=== PATIENT | male | born 1950 | race Caucasian/White ===

== ENCOUNTER 2019-05-01 12:39 | Emergency (ER) | payer MEDICARE, MEDICAID ==
[~2019-05-01] VITALS: Ht 170.2 cm; Wt 147.7 kg
[~2019-05-01 12:39] MED LIST: ADV50250 IH; ALBU8.5H8 IH; ASPI81TA52 PO; BUSP15TA7 PO; CELE200C3 PO; CLIN150C8 PO; DULO-31 PO; DUTA0.5C40 PO; FURO40TA4 PO; LISI-234 PO; MAGN500C16 PO; METF500T PO; MINE396O3 TOP; OXYC-658 PO; OXYC80TA37 PO; POTA8CAP20 PO; PREG100C PO; ROPI1TAB4 PO; TAMS0.4C32 PO
[2019-05-01 12:42] VITALS: BP 104/74
[2019-05-01] MEDS ORDERED: fentaNYL/PF 50MCG/1 ML 2ML syringe IM ONE (13:10)
[2019-05-01] MEDS ORDERED: methylPREDNISolone sod succ 125mg/2ml vial IM ONE (13:10)
== END 2019-05-01 13:51 | disposition home or self-care (01) ==
LOC: ER 12:40
DX: G89.29 Other chronic pain (principal); M54.5 Low back pain; I10 Essential (primary) hypertension; F41.9 Anxiety disorder, unspecified; F32.9 Major depressive disorder, single episode, unspecified; Z95.1 Presence of aortocoronary bypass graft; Z79.82 Long term (current) use of aspirin; Z79.84 Long term (current) use of oral hypoglycemic drugs; Z79.899 Other long term (current) drug therapy
CPT/HCPCS: 96372; 99283; J2930; J3010

== ENCOUNTER 2019-05-10 16:08 | Emergency (ER) | payer MEDICARE, MEDICAID ==
[~2019-05-10] VITALS: Ht 170.2 cm; Wt 147.7 kg
[2019-05-10] MEDS ORDERED: NORMAL SALINE IV ONE (16:40)
[2019-05-10] MEDS ORDERED: KETAMINE IV ONE (16:40)
[2019-05-10] MEDS ORDERED: HYDR-3964 PO (17:06)
[2019-05-10] MEDS ORDERED: BACL10TA2 PO (17:06)
[2019-05-10] MEDS ORDERED: DICL100G15 TOP (17:06)
[2019-05-10] MEDS ORDERED: KEN0.1O TOP (17:06)
[2019-05-10] MEDS ORDERED: LINA145C PO (17:49)
[2019-05-10] MEDS ORDERED: TRAM50TA2 PO (17:55)
[2019-05-10] MEDS ORDERED: CEPH-572 PO (17:55)
[2019-05-10 18:19] VITALS: BP 161/89
== END 2019-05-10 18:26 | disposition home or self-care (01) ==
LOC: ER 16:09
DX: G89.29 Other chronic pain (principal); M54.5 Low back pain; L03.116 Cellulitis of left lower limb; L03.115 Cellulitis of right lower limb; E66.01 Morbid (severe) obesity due to excess calories; I10 Essential (primary) hypertension; N40.0 Benign prostatic hyperplasia without lower urinary tract symptoms; F41.9 Anxiety disorder, unspecified; F32.9 Major depressive disorder, single episode, unspecified; Z98.890 Other specified postprocedural states; Z79.2 Long term (current) use of antibiotics; Z79.84 Long term (current) use of oral hypoglycemic drugs; Z79.899 Other long term (current) drug therapy; Z79.82 Long term (current) use of aspirin
CPT/HCPCS: 96365; 99284

== ENCOUNTER 2022-02-27 00:58 | Emergency (ER) | payer MEDICARE, MEDICAID ==
[~2022-02-27] VITALS: Ht 170.2 cm; Wt 136.4 kg
[~2022-02-27 00:58] MED LIST changes: -ADV50250 IH; -ALBU8.5H8 IH; -ASPI81TA52 PO; -BUSP15TA7 PO; -CELE200C3 PO; -CLIN150C8 PO; +DICL100G15 TOP; -DULO-31 PO; -DUTA0.5C40 PO; +HYDR-3964 PO; +KEN0.1O TOP; +LINA145C PO; -MAGN500C16 PO; +MAGN500C4 PO; -MINE396O3 TOP; -OXYC-658 PO; -OXYC80TA37 PO; -PREG100C PO; -ROPI1TAB4 PO; +ROPI1TAB6 PO; -TAMS0.4C32 PO
[2022-02-27 02:38] LABS: BASOPHILS # (AUTO) 0.1 X10'3 (0-0.2); BASOPHILS % (AUTO) 0.7 % (0-1); EOSINOPHILS # (AUTO) 0.1 X10'3 (0-0.9); EOSINOPHILS % (AUTO) 0.8 % (0-6); HEMATOCRIT 38.5 % (42.0-52.0); HEMOGLOBIN 13.1 g/dl (14.0-17.9); LYMPHOCYTES # (AUTO) 3.9 X10'3 (1.1-4.8); LYMPHOCYTES % (AUTO) 33.8 % (21-51); MEAN CORPUSCULAR HEMOGLOBIN 30.6 PG (27.0-31.0); MEAN PLATELET VOLUME 6.8 FL (7.4-10.4); MONOCYTES # (AUTO) 0.7 X10'3 (0-0.9); MONOCYTES % (AUTO) 6.1 % (2-12); NEUTROPHILS # (AUTO) 6.8 X10'3 (1.8-7.7); NEUTROPHILS % (AUTO) 58.6 % (42-75); PLATELET COUNT 299 X10'3 (140-440); RED BLOOD COUNT 4.28 X10'6 (4.70-6.10); RED CELL DISTRIBUTION WIDTH 12.8 % (11.5-14.5); WHITE BLOOD COUNT 11.6 X10'3 (4.5-11.0)
[2022-02-27 02:52] LABS: ALANINE AMINOTRANSFERASE 25 U/L (12-78); ALBUMIN 3.5 G/DL (3.4-5.0); ALBUMIN/GLOBULIN RATIO 0.9 (1.1-1.5); ALKALINE PHOSPHATASE 66 IU/L (46-116); ANION GAP 11 (8-16); ASPARTATE AMINO TRANSFERASE 26 U/L (10-37); BILIRUBIN,TOTAL 0.4 MG/DL (0.1-1.0); BLOOD UREA NITROGEN 19 MG/DL (7-18); BUN/CREATININE RATIO 18.3 (5.4-32.0); CALCIUM 9.3 MG/DL (8.5-10.1); CHLORIDE 100 MMOL/L (99-107); CREATININE 1.04 MG/DL (0.60-1.10); SODIUM 136 MMOL/L (135-145); TOTAL CARBON DIOXIDE 25.4 MMOL/L (24-32); TOTAL PROTEIN 7.5 G/DL (6.4-8.2); eGFR 70 ML/MIN
[2022-02-27 02:58] LABS: GLUCOSE 76 MG/DL (70-104)
[2022-02-27 03:22] LABS: APTT 36 SECONDS (22-32); D-DIMER 1.05 MG/L FEU (0-0.50)
[2022-02-27] MEDS ORDERED: ondansetron/PF 4mg/2ml inj IV ONE (03:30)
[2022-02-27] MEDS ORDERED: morphine 4 MG/ML inj SYRINge IV ONE (03:30)
--- NOTE | 2022-02-27 04:10 | NUR ---
vascular paged at [phone]
[2022-02-27 04:39] LABS: ETHANOL 0.212 GM/DL (0.0-0.010)
--- NOTE | 2022-02-27 06:30 | NUR ---
FIRST CONTACT WITH PT, FOUND SIDE-LYING IN BED. PT RR EVEN AND UNLABORED, IN NO DISTRESS. AWAITING MRI THIS MORNING.
--- NOTE | 2022-02-27 08:30 | NUR ---
PER DR. MANTILLA, IF PT IS ABLE TO WALK WITH STEADY GAIT, HE WILL NOT GET AN MRI TODAY.
--- NOTE | 2022-02-27 08:45 | NUR ---
PT AMBULATED WITH STEADY GAIT AND CANE APPROX 75 FEET. MD INFORMED, WILL BE DISCHARGED HOME.
[2022-02-27 10:15] VITALS: BP 152/76
== END 2022-02-27 10:15 | disposition home or self-care (01) ==
LOC: ER 00:59
DX: M25.552 Pain in left hip (principal); M25.551 Pain in right hip; M54.50 Low back pain, unspecified; I10 Essential (primary) hypertension; G89.29 Other chronic pain; F41.9 Anxiety disorder, unspecified; F32.A Depression, unspecified; Z98.890 Other specified postprocedural states; Z72.89 Other problems related to lifestyle; Z79.899 Other long term (current) drug therapy
CPT/HCPCS: 36415; 71045; 72128; 72131; 80053; 80320; 83880; 84484; 85025; 85379; 85610; 85730; 93005; 93971; 96374; 96375; 99285; J2270; J2405

== ENCOUNTER 2022-08-08 11:33 | Emergency (ER) | payer MEDICARE, MEDICAID ==
[~2022-08-08] VITALS: Ht 172.7 cm; Wt 120.5 kg
[2022-08-08] MEDS ORDERED: LIDOcaine 5% patch TP STA (12:41)
[2022-08-08] MEDS ORDERED: oxyCODONE/APAP 10/325mg tablet PO ONE (12:45)
[2022-08-08] MEDS ORDERED: morphine 4 MG/ML inj SYRINge IM ONE (12:50)
[2022-08-08] MEDS ORDERED: NAPR-56 PO (14:02)
[2022-08-08] MEDS ORDERED: LIDO700A32 TOP (14:02)
[2022-08-08] MEDS ORDERED: ketorolac trometh inj. 60 MG/2 ML VIAL IM ONE (14:05)
[2022-08-08] MEDS ORDERED: OXYC-145 PO (14:16)
[2022-08-08 14:37] VITALS: BP 170/103
== END 2022-08-08 14:41 | disposition home or self-care (01) ==
LOC: ER 11:34
DX: S20.211A Contusion of right front wall of thorax, initial encounter (principal); X58.XXXA Exposure to other specified factors, initial encounter; Y93.89 Activity, other specified; Y92.89 Other specified places as the place of occurrence of the external cause; Y99.8 Other external cause status
CPT/HCPCS: 71045; 96372; 99284; J1885; J2270

== ENCOUNTER 2023-06-12 16:27 | Emergency (ER) | payer MEDICARE, MEDICAID ==
[~2023-06-12] VITALS: Ht 170.2 cm; Wt 135.0 kg
[~2023-06-12 16:27] MED LIST changes: +LIDO700A32 TOP; +OXYC-145 PO; +ROPI1TAB47 PO; -ROPI1TAB6 PO
[2023-06-12 16:35] VITALS: BP 134/84; PULSE 102; RESP 16; TEMP 98.1; O2SAT 94
[2023-06-12 18:31] LABS: BASOPHILS % (AUTO) 0.3 % (0-1); EOSINOPHILS # (AUTO) 0.2 X10'3 (0-0.9); EOSINOPHILS % (AUTO) 1.2 % (0-6); HEMATOCRIT 40.3 % (42.0-52.0); HEMOGLOBIN 13.3 g/dl (14.0-17.9); LYMPHOCYTES % (AUTO) 14.4 % (21-51); MEAN CORPUSCULAR HEMOGLOBIN 29.4 PG (27.0-31.0); MEAN CORPUSCULAR VOLUME 89.3 FL (78-98); MEAN PLATELET VOLUME 6.4 FL (7.4-10.4); MONOCYTES # (AUTO) 0.8 X10'3 (0-0.9); NEUTROPHILS # (AUTO) 10.8 X10'3 (1.8-7.7); NEUTROPHILS % (AUTO) 78.1 % (42-75); PLATELET COUNT 516 X10'3 (140-440); RED BLOOD COUNT 4.51 X10'6 (4.70-6.10); WHITE BLOOD COUNT 13.9 X10'3 (4.5-11.0)
[2023-06-12 18:43] LABS: ALANINE AMINOTRANSFERASE 32 U/L (12-78); ALBUMIN 3.2 G/DL (3.4-5.0); ALBUMIN/GLOBULIN RATIO 0.6 (1.1-1.5); ALKALINE PHOSPHATASE 71 IU/L (46-116); ANION GAP 8 (8-16); ASPARTATE AMINO TRANSFERASE 27 U/L (10-37); BILIRUBIN,TOTAL 0.3 MG/DL (0.1-1.0); BLOOD UREA NITROGEN 54 MG/DL (7-18); BUN/CREATININE RATIO 24.2 (10.0-20.0); CHLORIDE 93 MMOL/L (99-107); CREATININE 2.23 MG/DL (0.60-1.10); GLUCOSE 124 MG/DL (70-104); POTASSIUM 4.5 MMOL/L (3.5-5.1); SODIUM 133 MMOL/L (135-145); TOTAL CARBON DIOXIDE 31.6 MMOL/L (24-32); TOTAL PROTEIN 8.6 G/DL (6.4-8.2); eCRCL 27 ML/MIN; eGFR 29 ML/MIN
[2023-06-13] MEDS ORDERED: FURO40TA4 PO (16:29)
[2023-06-13] MEDS ORDERED: HYDR-3972 PO (16:29)
[2023-06-13] MEDS ORDERED: POLY510P31 PO (16:29)
[2023-06-13] MEDS ORDERED: SULF1TAB45 PO (16:29)
[2023-06-13] MEDS ORDERED: DICL100G59 TOP (16:29)
[2023-06-13] MEDS ORDERED: POTA8CAP20 PO (16:29)
[2023-06-13] MEDS ORDERED: TRIA15OI2 TOP (16:29)
[2023-06-13] MEDS ORDERED: IBUP-1986 PO (16:29)
[2023-06-13] MEDS ORDERED: HYDR-3686 PO (16:29)
[2023-06-13] MEDS ORDERED: LISI1TAB53 PO (16:29)
== END 2023-06-12 23:00 | disposition left against medical advice (07) ==
LOC: ER 16:28
DX: M79.89 Other specified soft tissue disorders (principal); Z53.21 Procedure and treatment not carried out due to patient leaving prior to being seen by health care provider
CPT/HCPCS: 36415; 80053; 84145; 85025; 99281

== ENCOUNTER 2023-12-21 12:38 | Inpatient (IN) | payer MEDICARE, MEDICAID ==
[~2023-12-21] VITALS: Ht 170.2 cm; Wt 138.6 kg
[~2023-12-21 12:38] MED LIST changes: +ALBU18HF2 INH; +AMLO-708 PO; +CHLO25TA10 PO; -DICL100G15 TOP; +DICL100G59 TOP; +FURO-149 PO; -FURO40TA4 PO; +GENT30OI2 TOP; -HYDR-3964 PO; +HYDR-3972 PO; +IBUP-1986 PO; -KEN0.1O TOP; -LIDO700A32 TOP; -LINA145C PO; -LISI-234 PO; +LISI40TA13 PO; -MAGN500C4 PO; -METF500T PO; +METH10SO PO; -OXYC-145 PO; +SIMV5TAB58 PO; +TRAZ-251 PO
[2023-12-21 15:26] LABS: BASOPHILS # (AUTO) 0.1 X10'3 (0-0.2); BASOPHILS % (AUTO) 1.1 % (0-1); EOSINOPHILS # (AUTO) 0.1 X10'3 (0-0.9); EOSINOPHILS % (AUTO) 0.9 % (0-6); HEMATOCRIT 33.1 % (42.0-52.0); HEMOGLOBIN 10.8 g/dl (14.0-17.9); LYMPHOCYTES % (AUTO) 19.3 % (21-51); MEAN CORPUSCULAR HEMOGLOBIN 29.2 PG (27.0-31.0); MEAN CORPUSCULAR HGB CONC 32.7 g/dL (33.0-36.5); MEAN CORPUSCULAR VOLUME 89.4 FL (78-98); MEAN PLATELET VOLUME 6.9 FL (7.4-10.4); MONOCYTES # (AUTO) 0.7 X10'3 (0-0.9); MONOCYTES % (AUTO) 7.1 % (2-12); NEUTROPHILS # (AUTO) 7.4 X10'3 (1.8-7.7); NEUTROPHILS % (AUTO) 71.6 % (42-75); PLATELET COUNT 551 X10'3 (140-440); RED CELL DISTRIBUTION WIDTH 14.1 % (11.5-14.5); WHITE BLOOD COUNT 10.4 X10'3 (4.5-11.0)
[2023-12-21 15:26] LABS: BILIRUBIN,URINE NEGATIVE (Neg); CLARITY,URINE CLEAR (Clear); COLOR,URINE YELLOW (Yellow); GLUCOSE, URINE NEGATIVE (Neg); KETONES,URINE NEGATIVE (Neg); LEUKOCYTE ESTERASE ,URINE NEGATIVE (Neg); NITRITES, URINE NEGATIVE (Neg); OCCULT BLOOD,URINE NEGATIVE (Neg); PH,URINE 5.5 (4.8-8.0); PROTEIN,URINE NEGATIVE (Neg); UROBILINOGEN,URINE 0.2 E.U/dL (0.2-1.0)
[2023-12-21 15:27] LABS: UA COLLECTION TYPE CLN CATCH MIDSTREAM
[2023-12-21 15:31] LABS: ANION GAP 2 (8-16); BLOOD UREA NITROGEN 97 MG/DL (7-18); BUN/CREATININE RATIO 34.5 (10.0-20.0); CALCIUM 8.9 MG/DL (8.5-10.1); CHLORIDE 104 MMOL/L (99-107); CREATININE 2.81 MG/DL (0.60-1.10); POTASSIUM 5.6 MMOL/L (3.5-5.1); SODIUM 136 MMOL/L (135-145); TOTAL CARBON DIOXIDE 29.6 MMOL/L (24-32); eCRCL 21 ML/MIN; eGFR 22 ML/MIN
[2023-12-21 15:33] LABS: ETHANOL < 10 MG/DL (<10); GLUCOSE 115 MG/DL (70-104)
[2023-12-21 15:34] LABS: URINE AMPHETAMINE SCREEN NEGATIVE (Neg); URINE BARBITUATE SCREEN NEGATIVE (Neg); URINE BENZODIAZEPINES SCREEN NEGATIVE (Neg); URINE CANNABINOID SCREEN NEGATIVE (Neg); URINE COCAINE SCREEN NEGATIVE (Neg); URINE METHADONE SCREEN POSITIVE (Neg); URINE OPIATE SCREEN POSITIVE (Neg); URINE PHENCYCLIDINE SCREEN NEGATIVE (Neg)
[2023-12-21] MEDS: CefTRIAXone 2gm/D5W 50ml BAG 50 ML IV ONE (16:42)
[2023-12-21] MEDS: methadone 10mg tablet PO ONE (16:42)
[2023-12-21] MEDS ORDERED: acetaminophen 325mg tablet PO PRN (16:50)
[2023-12-21] MEDS ORDERED: mag hydrox/Alum hydrox/simeth 30ml oral suspension PO PRN (16:50)
[2023-12-21] MEDS ORDERED: potassium Cl 40MEQ/1/2NS 520ml 520 ML IV PRN (16:50)
[2023-12-21] MEDS ORDERED: magnesium 4gm in 100ml NS 100 ML IV PRN (16:50)
[2023-12-21] MEDS ORDERED: magnesium 2GM in 50ml NS 50 ML IV PRN (16:50)
[2023-12-21] MEDS ORDERED: potassium Cl 20 mEq SR tablet PO PRN ×2 (16:50)
[2023-12-21] MEDS ORDERED: ondansetron/PF 4mg/2ml inj IV PRN (16:50)
[2023-12-21] MEDS ORDERED: magnesium Cl slow-release 64mg tablet PO PRN (16:50)
[2023-12-21] MEDS ORDERED: ipratropium/albuterol 3ml nebule NEB PRN (17:25)
[2023-12-21] MEDS: K and/or MAG REPLACEMENT MC SCH (20:00)
[2023-12-21] MEDS: docusate sod 100mg capsule PO SCH (20:00)
[2023-12-21] MEDS ORDERED: ENOX40SY7 SUBCUT (20:15)
[2023-12-21] MEDS ORDERED: GABA-530 PO (20:21)
[2023-12-21] MEDS ORDERED: HYDR-3972 PO (20:22)
[2023-12-21] MEDS: normal saline 1000ml 1,000 ML IV SCH (20:35)
[2023-12-21] MEDS: vancomycin/NS 1 GM ADD-VANTAGE 250 ML IV SCH (20:35)
[2023-12-21] MEDS: heparin, porcine 5000 units/ml vial SQ SCH (20:36)
[2023-12-21 21:38] VITALS: BP 124/51; PULSE 81; RESP 16; TEMP 97.8; O2SAT 92
[2023-12-21] MEDS: HYDROmorphone inj. 0.5 MG/0.5 ML DISP.SYRIN IV PRN (21:42)
[2023-12-21 22:00] VITALS: RESP 18; O2SAT 94
[2023-12-21 22:10] VITALS: PULSE 86; RESP 17; O2SAT 99
[2023-12-21] MEDS: HYDROcodone/acetaminophen 5mg/325mg tablet PO PRN (22:53)
[2023-12-22] VITALS (9 sets, daily range): BP systolic 107–163; BP diastolic 32–74; PULSE 53–98; RESP 14–22; TEMP 97.5–98.6; O2SAT 89–98
[2023-12-22] MEDS: magnesium hydroxide 30ml (MOM) UD suspension PO PRN (03:42)
[2023-12-22 11:45] LABS: BASOPHILS # (AUTO) 0.1 X10'3 (0-0.2); BASOPHILS % (AUTO) 0.9 % (0-1); EOSINOPHILS # (AUTO) 0.2 X10'3 (0-0.9); EOSINOPHILS % (AUTO) 1.9 % (0-6); HEMATOCRIT 32.6 % (42.0-52.0); HEMOGLOBIN 10.6 g/dl (14.0-17.9); LYMPHOCYTES % (AUTO) 22.5 % (21-51); MEAN CORPUSCULAR HEMOGLOBIN 28.7 PG (27.0-31.0); MEAN CORPUSCULAR HGB CONC 32.5 g/dL (33.0-36.5); MEAN CORPUSCULAR VOLUME 88.5 FL (78-98); MEAN PLATELET VOLUME 7.1 FL (7.4-10.4); MONOCYTES # (AUTO) 0.7 X10'3 (0-0.9); MONOCYTES % (AUTO) 8.4 % (2-12); NEUTROPHILS # (AUTO) 5.9 X10'3 (1.8-7.7); NEUTROPHILS % (AUTO) 66.3 % (42-75); PLATELET COUNT 525 X10'3 (140-440); RED BLOOD COUNT 3.68 X10'6 (4.70-6.10); RED CELL DISTRIBUTION WIDTH 14.2 % (11.5-14.5); WHITE BLOOD COUNT 8.9 X10'3 (4.5-11.0)
[2023-12-22 12:14] LABS: ALANINE AMINOTRANSFERASE 29 U/L (12-78); ALBUMIN 1.9 G/DL (3.4-5.0); ALBUMIN/GLOBULIN RATIO 0.4 (1.1-1.5); ALKALINE PHOSPHATASE 45 IU/L (46-116); ANION GAP 5 (8-16); ASPARTATE AMINO TRANSFERASE 28 U/L (10-37); BILIRUBIN,TOTAL 0.3 MG/DL (0.1-1.0); BLOOD UREA NITROGEN 70 MG/DL (7-18); BUN/CREATININE RATIO 41.4 (10.0-20.0); CALCIUM 8.7 MG/DL (8.5-10.1); CHLORIDE 104 MMOL/L (99-107); CREATININE 1.69 MG/DL (0.60-1.10); MAGNESIUM 2.3 MG/DL (1.5-2.4); POTASSIUM 4.9 MMOL/L (3.5-5.1); SODIUM 138 MMOL/L (135-145); TOTAL CARBON DIOXIDE 29.5 MMOL/L (24-32); TOTAL PROTEIN 6.8 G/DL (6.4-8.2); eCRCL 35 ML/MIN; eGFR 40 ML/MIN
[2023-12-22 12:15] LABS: GLUCOSE 107 MG/DL (70-104)
[2023-12-22] MEDS: furosemide 40mg/4ml inj IV ONE (13:28)
[2023-12-22] MEDS: HYDROcodone/acetaminophen 10/325mg tab PO PRN (15:55)
[2023-12-22] MEDS ORDERED: albuterol 2.5 MG/3 ML nebule NEB PRN (17:45)
[2023-12-22] MEDS: nystatin 15 GM powder TP SCH (19:31)
[2023-12-22] MEDS: ROPINIRole 1mg tablet PO SCH (20:17)
[2023-12-22] MEDS: SIMVASTATIN 5 MG PO SCH (20:18)
[2023-12-23] VITALS (8 sets, daily range): BP systolic 131–160; BP diastolic 59–77; PULSE 68–91; RESP 16–22; TEMP 97.7–99; O2SAT 90–95
[2023-12-23] MEDS: furosemide 40mg/4ml inj IV SCH (07:28)
[2023-12-23] MEDS: chlorthalidone 25mg tablet PO SCH (07:29)
[2023-12-23] MEDS: amLODIPine 5mg tablet PO SCH (07:30)
[2023-12-23 07:48] LABS: BASOPHILS # (AUTO) 0.1 X10'3 (0-0.2); BASOPHILS % (AUTO) 0.9 % (0-1); EOSINOPHILS # (AUTO) 0.1 X10'3 (0-0.9); HEMATOCRIT 31.8 % (42.0-52.0); HEMOGLOBIN 10.6 g/dl (14.0-17.9); LYMPHOCYTES # (AUTO) 2.2 X10'3 (1.1-4.8); LYMPHOCYTES % (AUTO) 28.3 % (21-51); MEAN CORPUSCULAR HEMOGLOBIN 29.2 PG (27.0-31.0); MEAN CORPUSCULAR HGB CONC 33.2 g/dL (33.0-36.5); MEAN CORPUSCULAR VOLUME 87.8 FL (78-98); MEAN PLATELET VOLUME 6.7 FL (7.4-10.4); MONOCYTES # (AUTO) 0.5 X10'3 (0-0.9); MONOCYTES % (AUTO) 6.9 % (2-12); NEUTROPHILS % (AUTO) 62.9 % (42-75); PLATELET COUNT 511 X10'3 (140-440); RED BLOOD COUNT 3.62 X10'6 (4.70-6.10); WHITE BLOOD COUNT 7.9 X10'3 (4.5-11.0)
[2023-12-23 08:14] LABS: ALANINE AMINOTRANSFERASE 29 U/L (12-78); ALBUMIN/GLOBULIN RATIO 0.4 (1.1-1.5); ALKALINE PHOSPHATASE 51 IU/L (46-116); ANION GAP 5 (8-16); ASPARTATE AMINO TRANSFERASE 25 U/L (10-37); BILIRUBIN,TOTAL 0.4 MG/DL (0.1-1.0); BLOOD UREA NITROGEN 44 MG/DL (7-18); BUN/CREATININE RATIO 37.3 (10.0-20.0); CALCIUM 8.6 MG/DL (8.5-10.1); CHLORIDE 101 MMOL/L (99-107); CREATININE 1.18 MG/DL (0.60-1.10); POTASSIUM 4.2 MMOL/L (3.5-5.1); SODIUM 136 MMOL/L (135-145); TOTAL CARBON DIOXIDE 29.6 MMOL/L (24-32); eCRCL 51 ML/MIN; eGFR 60 ML/MIN
[2023-12-23 08:31] LABS: GLUCOSE 104 MG/DL (70-104)
[2023-12-23] MEDS: HYDROcodone/acetaminophen 10/325mg tab PO SCH (10:21)
[2023-12-23] MEDS: docusate sod 250mg capsule PO SCH (20:09)
[2023-12-23] MEDS: psyllium seed 5.8 gm packet (sugar-free) PO SCH (20:10)
[2023-12-24] VITALS (8 sets, daily range): BP systolic 137–158; BP diastolic 80–87; PULSE 75–91; RESP 16–20; TEMP 98.1–98.4; O2SAT 93–98
[2023-12-24 06:49] LABS: BASOPHILS # (AUTO) 0.1 X10'3 (0-0.2); BASOPHILS % (AUTO) 0.8 % (0-1); EOSINOPHILS # (AUTO) 0.1 X10'3 (0-0.9); HEMATOCRIT 34.2 % (42.0-52.0); HEMOGLOBIN 11.6 g/dl (14.0-17.9); LYMPHOCYTES # (AUTO) 2.1 X10'3 (1.1-4.8); LYMPHOCYTES % (AUTO) 22.7 % (21-51); MEAN CORPUSCULAR HEMOGLOBIN 29.5 PG (27.0-31.0); MEAN CORPUSCULAR HGB CONC 33.9 g/dL (33.0-36.5); MEAN CORPUSCULAR VOLUME 86.9 FL (78-98); MEAN PLATELET VOLUME 6.7 FL (7.4-10.4); MONOCYTES # (AUTO) 0.6 X10'3 (0-0.9); MONOCYTES % (AUTO) 6.7 % (2-12); NEUTROPHILS # (AUTO) 6.4 X10'3 (1.8-7.7); NEUTROPHILS % (AUTO) 68.8 % (42-75); PLATELET COUNT 520 X10'3 (140-440); RED BLOOD COUNT 3.94 X10'6 (4.70-6.10); RED CELL DISTRIBUTION WIDTH 13.6 % (11.5-14.5); WHITE BLOOD COUNT 9.2 X10'3 (4.5-11.0)
[2023-12-24 07:03] LABS: ALANINE AMINOTRANSFERASE 34 U/L (12-78); ALBUMIN 2.1 G/DL (3.4-5.0); ALBUMIN/GLOBULIN RATIO 0.4 (1.1-1.5); ALKALINE PHOSPHATASE 57 IU/L (46-116); ANION GAP 5 (8-16); ASPARTATE AMINO TRANSFERASE 27 U/L (10-37); BILIRUBIN,TOTAL 0.5 MG/DL (0.1-1.0); BLOOD UREA NITROGEN 32 MG/DL (7-18); BUN/CREATININE RATIO 29.6 (10.0-20.0); CALCIUM 9.1 MG/DL (8.5-10.1); CHLORIDE 98 MMOL/L (99-107); CREATININE 1.08 MG/DL (0.60-1.10); POTASSIUM 3.8 MMOL/L (3.5-5.1); SODIUM 134 MMOL/L (135-145); TOTAL CARBON DIOXIDE 30.8 MMOL/L (24-32); TOTAL PROTEIN 7.6 G/DL (6.4-8.2); eCRCL 55 ML/MIN; eGFR 67 ML/MIN
[2023-12-24 07:10] LABS: GLUCOSE 109 MG/DL (70-104)
[2023-12-24] MEDS: VANCOMYCIN LEVEL IV ONE (17:07)
[2023-12-24] MEDS: traZODone 50mg tablet PO SCH (21:11)
[2023-12-25] VITALS (7 sets, daily range): BP systolic 118–140; BP diastolic 68–82; PULSE 78–110; RESP 16–22; TEMP 98.1–99; O2SAT 93–97
[2023-12-25 07:13] LABS: BASOPHILS # (AUTO) 0.1 X10'3 (0-0.2); BASOPHILS % (AUTO) 0.7 % (0-1); EOSINOPHILS # (AUTO) 0.1 X10'3 (0-0.9); EOSINOPHILS % (AUTO) 1.4 % (0-6); HEMATOCRIT 36.8 % (42.0-52.0); HEMOGLOBIN 12.1 g/dl (14.0-17.9); LYMPHOCYTES # (AUTO) 2.3 X10'3 (1.1-4.8); LYMPHOCYTES % (AUTO) 23.4 % (21-51); MEAN CORPUSCULAR HEMOGLOBIN 28.8 PG (27.0-31.0); MEAN CORPUSCULAR VOLUME 87.5 FL (78-98); MONOCYTES # (AUTO) 0.8 X10'3 (0-0.9); NEUTROPHILS # (AUTO) 6.6 X10'3 (1.8-7.7); NEUTROPHILS % (AUTO) 66.5 % (42-75); PLATELET COUNT 526 X10'3 (140-440); RED BLOOD COUNT 4.21 X10'6 (4.70-6.10); RED CELL DISTRIBUTION WIDTH 13.8 % (11.5-14.5); WHITE BLOOD COUNT 9.9 X10'3 (4.5-11.0)
[2023-12-25 07:35] LABS: ALANINE AMINOTRANSFERASE 37 U/L (12-78); ALBUMIN 2.2 G/DL (3.4-5.0); ALBUMIN/GLOBULIN RATIO 0.4 (1.1-1.5); ALKALINE PHOSPHATASE 58 IU/L (46-116); ANION GAP 5 (8-16); ASPARTATE AMINO TRANSFERASE 25 U/L (10-37); BILIRUBIN,TOTAL 0.4 MG/DL (0.1-1.0); BLOOD UREA NITROGEN 31 MG/DL (7-18); BUN/CREATININE RATIO 29.8 (10.0-20.0); CALCIUM 9.3 MG/DL (8.5-10.1); CHLORIDE 98 MMOL/L (99-107); CREATININE 1.04 MG/DL (0.60-1.10); POTASSIUM 3.6 MMOL/L (3.5-5.1); SODIUM 133 MMOL/L (135-145); TOTAL CARBON DIOXIDE 29.8 MMOL/L (24-32); TOTAL PROTEIN 7.5 G/DL (6.4-8.2); eCRCL 57 ML/MIN; eGFR 70 ML/MIN
[2023-12-25 08:01] LABS: GLUCOSE 100 MG/DL (70-104)
[2023-12-26] VITALS (7 sets, daily range): BP systolic 92–154; BP diastolic 56–78; PULSE 82–97; RESP 16–20; TEMP 97.4–98.7; O2SAT 92–96
[2023-12-26 07:39] LABS: BASOPHILS # (AUTO) 0.2 X10'3 (0-0.2); BASOPHILS % (AUTO) 1.7 % (0-1); EOSINOPHILS # (AUTO) 0.1 X10'3 (0-0.9); EOSINOPHILS % (AUTO) 1.1 % (0-6); HEMATOCRIT 35.9 % (42.0-52.0); HEMOGLOBIN 12.4 g/dl (14.0-17.9); LYMPHOCYTES # (AUTO) 2.5 X10'3 (1.1-4.8); LYMPHOCYTES % (AUTO) 23.9 % (21-51); MEAN CORPUSCULAR HGB CONC 34.6 g/dL (33.0-36.5); MEAN CORPUSCULAR VOLUME 86.7 FL (78-98); MEAN PLATELET VOLUME 7.1 FL (7.4-10.4); MONOCYTES # (AUTO) 0.9 X10'3 (0-0.9); MONOCYTES % (AUTO) 8.5 % (2-12); NEUTROPHILS # (AUTO) 6.7 X10'3 (1.8-7.7); NEUTROPHILS % (AUTO) 64.8 % (42-75); PLATELET COUNT 468 X10'3 (140-440); RED BLOOD COUNT 4.14 X10'6 (4.70-6.10); RED CELL DISTRIBUTION WIDTH 13.7 % (11.5-14.5); WHITE BLOOD COUNT 10.3 X10'3 (4.5-11.0)
[2023-12-26 07:56] LABS: ALANINE AMINOTRANSFERASE 38 U/L (12-78); ALBUMIN 2.3 G/DL (3.4-5.0); ALBUMIN/GLOBULIN RATIO 0.4 (1.1-1.5); ALKALINE PHOSPHATASE 61 IU/L (46-116); ANION GAP 7 (8-16); ASPARTATE AMINO TRANSFERASE 24 U/L (10-37); BILIRUBIN,TOTAL 0.4 MG/DL (0.1-1.0); BLOOD UREA NITROGEN 40 MG/DL (7-18); BUN/CREATININE RATIO 30.5 (10.0-20.0); CALCIUM 9.3 MG/DL (8.5-10.1); CHLORIDE 98 MMOL/L (99-107); CREATININE 1.31 MG/DL (0.60-1.10); POTASSIUM 3.5 MMOL/L (3.5-5.1); SODIUM 132 MMOL/L (135-145); TOTAL CARBON DIOXIDE 26.7 MMOL/L (24-32); TOTAL PROTEIN 7.7 G/DL (6.4-8.2); eCRCL 46 ML/MIN; eGFR 53 ML/MIN
[2023-12-26 08:02] LABS: GLUCOSE 98 MG/DL (70-104)
[2023-12-26] MEDS: lisinopril 20mg tablet PO SCH (08:11)
[2023-12-26] MEDS: VANCOMYCIN LEVEL IV ONE (16:42)
[2023-12-27] MEDS: HYDROmorphone inj. 0.5 MG/0.5 ML DISP.SYRIN IM ONE (02:16)
[2023-12-27 06:42] VITALS: BP 130/73; PULSE 88; RESP 16; TEMP 98; O2SAT 96
[2023-12-27 08:00] VITALS: RESP 16; O2SAT 96
[2023-12-27 10:00] VITALS: BP 91/55; PULSE 86; RESP 20; TEMP 98.8; O2SAT 92
== END 2023-12-27 10:39 | DRG 682 ==
LOC: ER 12:39 → ED HOLD 16:52 → EDBEDREQ 19:21 → ORTHO 4S 21:20
PROVIDERS: ADMIT Internal Medicine; ATTEND Internal Medicine
PROC: 02HV33Z Insertion of Infusion Device into Superior Vena Cava, Percutaneous Approach (ICD-10-PCS; principal; 2023-12-21)
PROC: B548ZZZ Ultrasonography of Superior Vena Cava (ICD-10-PCS; 2023-12-21)
DX: N17.0 Acute kidney failure with tubular necrosis (principal); E43 Unspecified severe protein-calorie malnutrition; F11.23 Opioid dependence with withdrawal; L03.115 Cellulitis of right lower limb; L03.116 Cellulitis of left lower limb; Z68.42 Body mass index [BMI] 45.0-49.9, adult; J96.10 Chronic respiratory failure, unspecified whether with hypoxia or hypercapnia; E87.5 Hyperkalemia; I10 Essential (primary) hypertension; E78.5 Hyperlipidemia, unspecified; N40.0 Benign prostatic hyperplasia without lower urinary tract symptoms; M54.9 Dorsalgia, unspecified; K57.90 Diverticulosis of intestine, part unspecified, without perforation or abscess without bleeding; G89.29 Other chronic pain; G47.30 Sleep apnea, unspecified; F41.9 Anxiety disorder, unspecified; F32.A Depression, unspecified; E66.01 Morbid (severe) obesity due to excess calories; Z87.891 Personal history of nicotine dependence; Z82.49 Family history of ischemic heart disease and other diseases of the circulatory system; Z79.899 Other long term (current) drug therapy; Z80.8 Family history of malignant neoplasm of other organs or systems
CPT/HCPCS: 36415; 73060; 80048; 80053; 80202; 80305; 80320; 81003; 83605; 83735; 84145; 85025; 87040; 87081; 93005; 94760; 97110; 97161; 97530; 97535; 99285; A4615; A6212; A6213; A6250; A6449; A6590; G0378; J0696; J1170; J1644; J1940; J3370; J7030

== ENCOUNTER 2024-06-24 12:38 | Emergency (ER) | payer MEDICARE, MEDICAID ==
[~2024-06-24] VITALS: Ht 170.2 cm; Wt 136.4 kg
[~2024-06-24 12:38] MED LIST changes: +ENOX40SY7 SUBCUT; +GABA-530 PO
[2024-06-24 13:34] LABS: ALBUMIN 3.6 G/DL (3.4-5.0); BILIRUBIN,TOTAL 0.8 MG/DL (0.1-1.0); BLOOD UREA NITROGEN 21 MG/DL (7-18); CALCIUM 9.1 MG/DL (8.5-10.1); POTASSIUM 4.2 MMOL/L (3.5-5.1); SODIUM 137 MMOL/L (135-145)
[2024-06-24 13:37] LABS: BASOPHILS # (AUTO) 0.1 X10'3 (0-0.2); BASOPHILS % (AUTO) 0.7 % (0-1); EOSINOPHILS % (AUTO) 0.1 % (0-6); HEMOGLOBIN 13.1 g/dl (14.0-17.9); LYMPHOCYTES # (AUTO) 2.2 X10'3 (1.1-4.8); LYMPHOCYTES % (AUTO) 24.9 % (21-51); MEAN CORPUSCULAR HEMOGLOBIN 28.4 PG (27.0-31.0); MEAN CORPUSCULAR HGB CONC 32.9 g/dL (33.0-36.5); MEAN CORPUSCULAR VOLUME 86.5 FL (78-98); MEAN PLATELET VOLUME 7.2 FL (7.4-10.4); MONOCYTES # (AUTO) 0.4 X10'3 (0-0.9); MONOCYTES % (AUTO) 4.5 % (2-12); NEUTROPHILS # (AUTO) 6.1 X10'3 (1.8-7.7); NEUTROPHILS % (AUTO) 69.8 % (42-75); PLATELET COUNT 292 X10'3 (140-440); RED BLOOD COUNT 4.62 X10'6 (4.70-6.10); RED CELL DISTRIBUTION WIDTH 14.9 % (11.5-14.5); WHITE BLOOD COUNT 8.8 X10'3 (4.5-11.0)
[2024-06-24 14:56] LABS: BILIRUBIN,URINE NEGATIVE (Neg); CLARITY,URINE CLEAR (Clear); COLOR,URINE YELLOW (Yellow); GLUCOSE, URINE NEGATIVE (Neg); KETONES,URINE 15 mg/dl (Neg); LEUKOCYTE ESTERASE ,URINE NEGATIVE (Neg); NITRITES, URINE NEGATIVE (Neg); OCCULT BLOOD,URINE TRACE-INTACT (Neg); PROTEIN,URINE NEGATIVE (Neg); UROBILINOGEN,URINE 0.2 E.U/dL (0.2-1.0)
[2024-06-24 14:57] LABS: UA COLLECTION TYPE NON-SPECIFIED
[2024-06-24] MEDS: diphenhydrAMINE 50 mg/ml inj IV ONE (15:03)
[2024-06-24] MEDS: dicyclomine 10 MG capsule PO ONE (15:03)
[2024-06-24] MEDS: metoclopramide 5 mg/ml inj IV ONE (15:03)
[2024-06-24 15:04] LABS: BACTERIA,URINE NONE SEEN /HPF (Neg); RBC,URINE 0-2 /HPF (0-2); SQUAMOUS EPITHELIAL CELL,UR NONE SEEN /LPF (FEW); WBC,URINE NONE SEEN /HPF (0-4)
[2024-06-24] MEDS: normal saline 1000ml 1,000 ML IV ONE (15:06)
[2024-06-24 15:10] LABS: ALANINE AMINOTRANSFERASE 34 U/L (12-78); ALKALINE PHOSPHATASE 73 IU/L (46-116); ANION GAP 18 (8-16); ASPARTATE AMINO TRANSFERASE 33 U/L (10-37); BUN/CREATININE RATIO 22.8 (10.0-20.0); CHLORIDE 100 MMOL/L (99-107); CREATININE 0.92 MG/DL (0.60-1.10); ETHANOL 109 MG/DL (<10); GLUCOSE 75 MG/DL (70-104); LIPASE 32 U/L (16-77); TOTAL CARBON DIOXIDE 18.8 MMOL/L (24-32); TOTAL PROTEIN 7.1 G/DL (6.4-8.2); eCRCL 65 ML/MIN; eGFR 80 ML/MIN
[2024-06-24] MEDS: proCHLORperazine 10 MG/2 ml inj IV ONE (16:09)
[2024-06-24] MEDS ORDERED: DICY20TA17 PO (17:03)
[2024-06-24] MEDS ORDERED: PROC-8 PO (17:03)
[2024-06-24 17:05] VITALS: BP 158/97; PULSE 98; RESP 16; TEMP 98.2; O2SAT 97
== END 2024-06-24 17:31 | disposition home or self-care (01) ==
LOC: ER 12:39
DX: R11.2 Nausea with vomiting, unspecified (principal); F10.129 Alcohol abuse with intoxication, unspecified; I10 Essential (primary) hypertension; G89.29 Other chronic pain; F41.9 Anxiety disorder, unspecified; F32.A Depression, unspecified; G47.30 Sleep apnea, unspecified; N40.0 Benign prostatic hyperplasia without lower urinary tract symptoms; Z79.899 Other long term (current) drug therapy; Z95.1 Presence of aortocoronary bypass graft; Y90.9 Presence of alcohol in blood, level not specified
CPT/HCPCS: 36415; 80053; 81001; 83690; 85025; 93005; 96361; 96374; 96375; 99284; C1758; G0480; J0780; J1200; J2765; J7030; 80320